=== PATIENT | male | born 1985 | race Caucasian/White ===

== ENCOUNTER 2018-05-08 13:19 | Emergency (ER) | payer SELFPAY ==
[~2018-05-08] VITALS: Ht 185.4 cm; Wt 94.0 kg
[2018-05-08] MEDS ORDERED: KETOROLAC 60 MG/2 ML IM ONE (13:30)
[2018-05-08] MEDS ORDERED: KETOROLAC 30 MG/1 ML ONE (13:41)
[2018-05-08 14:46] VITALS: BP 129/81
== END 2018-05-08 14:48 | disposition home or self-care (01) ==
LOC: ED 14:13
DX: S83.91XA Sprain of unspecified site of right knee, initial encounter (principal); Z59.0 Homelessness; X58.XXXA Exposure to other specified factors, initial encounter; Y93.89 Activity, other specified; Y92.89 Other specified places as the place of occurrence of the external cause; Y99.8 Other external cause status
CPT/HCPCS: 73564; 96372; 99283; J1885

== ENCOUNTER 2018-09-28 23:54 | Emergency (ER) | payer SELFPAY ==
[~2018-09-28] VITALS: Ht 182.9 cm; Wt 90.0 kg
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
--- NOTE | 2018-09-29 03:10 | NUR ---
Patient given discharge instructions and they have confirmed that they understand the instructions. Patient ambulatory with steady gait. Pt given cab voucher to alf.
[2018-09-29 03:12] VITALS: BP 121/91
--- NOTE | 2018-09-29 03:15 | NUR ---
PT NOW REFUSING TO LEAVE. SECURITY CALLED TO ASSIST PT WITH LEAVING
== END 2018-09-29 03:14 | disposition home or self-care (01) ==
LOC: ED 09-29 01:02
DX: F10.120 Alcohol abuse with intoxication, uncomplicated (principal); F17.200 Nicotine dependence, unspecified, uncomplicated; I10 Essential (primary) hypertension
CPT/HCPCS: 99283